=== PATIENT | female | born 1975 | race Caucasian/White ===

== ENCOUNTER → 2018-07-06 | Outpatient (CLI) | payer OTHER ==
[~2018-07-06] MED LIST: ALBUTEROL INHAL17 GM IH; CLARITIN5 MG; ESTRACE2 MG; FLEXERIL PO; HYDROCODON-ACE1 EAC7 PO; HYDROCODONE-AP1 EAC6 PO; IBUPROFEN 800800 M1 PO; LEVAQUIN 750 M750 MG PO; PREDNISONE 20 M20 MG PO; TESSALON200 MG PO
== END ==
LOC: M.RAD 15:13
DX: Z12.31 Encounter for screening mammogram for malignant neoplasm of breast (principal)

== ENCOUNTER → 2018-12-17 | Outpatient (CLI) | payer OTHER | LOC: M.MRI 17:01 | DX: S83.411A Sprain of medial collateral ligament of right knee, initial encounter (principal); S83.511A Sprain of anterior cruciate ligament of right knee, initial encounter; M25.461 Effusion, right knee; M71.21 Synovial cyst of popliteal space [Baker], right knee; Z88.0 Allergy status to penicillin; X58.XXXA Exposure to other specified factors, initial encounter; Y93.89 Activity, other specified; Y92.89 Other specified places as the place of occurrence of the external cause; Y99.8 Other external cause status ==

== ENCOUNTER 2021-03-12 06:45 | Emergency (ER) | payer OTHER ==
[~2021-03-12] VITALS: Ht 167.6 cm; Wt 77.1 kg
[2021-03-12 08:28] VITALS: BP 128/72
== END 2021-03-12 08:28 | disposition home or self-care (01) ==
LOC: M.ERS 06:45
DX: S61.213A Laceration without foreign body of left middle finger without damage to nail, initial encounter (principal); Z90.711 Acquired absence of uterus with remaining cervical stump; Z90.49 Acquired absence of other specified parts of digestive tract; Z88.0 Allergy status to penicillin; W27.2XXA Contact with scissors, initial encounter; Y93.89 Activity, other specified; Y92.89 Other specified places as the place of occurrence of the external cause; Y99.8 Other external cause status